=== PATIENT | female | born 1940 | race Caucasian/White ===

== ENCOUNTER 2016-11-01 18:32 | Inpatient (IN) | payer MEDICARE ==
[~2016-11-01] VITALS: Ht 162.5 cm; Wt 58.5 kg
--- NOTE | ~2016-11-01 | PR ---
[place], [place] PROGRESS NOTE NAME: DANSIHA TUTTLE UNIT #: [id number] ROOM: 312 DOCTOR: CHAVA AVITIA MD BIRTHDATE: [birth year] DOS: 11/04/2016 CHIEF COMPLAINT: "I don't want to have to go back to that place, can't you understand that." SUMMARY OF THE VISIT: The patient was interviewed in the quiet room where she was sitting, reading a magazine. She stopped and engaged in conversation. She was somewhat upset that she would have to return to [facility] [address] stating that she was absolutely embarrassed that the police had to be called out there and cannot face her friends. She reports being perplexed that she is getting mixed messages, but her report from her son who is her power of business attorney stating what and what cannot she do. She was hoping to be able to move to [place] either with the daughter or on her own and states that the son has given her conflicting messages. On a more positive note, she does seem to be much more redirectable and is much less pressured and manic. You can actually reasonably rationalize with her and have a conversation that is not pressured. Her only other complaint is that she did not sleep well at all last night. MENTAL STATUS: She is alert and oriented. Mood does still seem to be somewhat hypomanic, but improving. There are no auditory or visual hallucinations. No delusions, no paranoia. Short, intermediate, and long-term memory are relatively intact. PLAN: I will maintain her current psychotropic regimen. I will check a valproic acid level in the a.m. and I will add trazodone 150 mg at bedtime p.r.n. for sleep. Continue to engage her in individual and torres milieu with the plan to discharge when psychiatrically stable. CHAVA AVITIA MD CM:PNTRANS [phone] CHAVA AVITIA MD 11/04/164 interface
--- NOTE | ~2016-11-01 | PR ---
[place], [place] PROGRESS NOTE NAME: DANISHA TUTTLE UNIT #: [id number] ROOM: 312 DOCTOR: ANGELIKA WALTRES BIRTHDATE: [birth year] DOS: 11/03/2016 CHIEF COMPLAINT: Today, "why I'm here." SUMMARY OF THE VISIT: The patient was seen in the dining room. She is alert and oriented x 3. Although short tempered, but cooperative and conversant. She has had a positive urinalysis, she had positive ketones, positive blood, 1+ leukocyte esterase, 4+ bacteria, so she will be treated for a urinary tract infection. She had a C and S done at the shelter, which they called and said it was positive for greater than 100,000 Klebsiella. Her calls have been limited while she is on the unit because she is making multiple calls to the son. So, at his request, she has been limited to [address] Voss came and evaluated her yesterday. Her daughter is her DPOA. She is here on a pink slip and so that now will on Sunday. She has told me that she does not want to return to the [facility] and social worker psychiatric is aware of that. We are going to encourage fluids on her since she does have the positive UTI. We will continue to try to engage her in individual and torres milieu. She will be treated for the urinary tract infection and we will discharge her to the least restrictive environment as soon as she is psychologically and medically stable. Angelika Walters NP CM:PNTRANS [phone] ANGELIKA WALTERS 11/03/162108 interface
--- NOTE | ~2016-11-01 | CON ---
[place], [place] REPORT OF CONSULTATION NAME: DANISHA TUTTLE UNIT #: [id number] ROOM: 312 DOCTOR: KARTHIKEYAN ESPINO ED.D (IVAN) BIRTHDATE: [birth year] DOS: 11/02/2016 HISTORY OF PRESENT ILLNESS: The patient is a 75-year-old female referred by Dr. Avitia for competency evaluation. This patient is presently on [facility] for her bipolar disorder. She states that she is presently residing at the [facility] at [address], in [place], [place]. She was sent to the hospital because she was extremely manic. Her son apparently is her power of ip technology transactions attorney for healthcare and general power of ip technology transactions attorney. There was some concern about this patient needing guardianship but at the present time, she does have a durable power of ip technology transactions attorney for healthcare and all decision should be deferred to that individual. She does have a long history of mental illness along with atrial fibrillation, congestive heart failure, hypothyroidism, hypertension, osteoporosis, pulmonary nodules and vitamin D deficiency. Her psych meds include Depakote and Latuda at this time. She was awake, alert and oriented to person, place and time. She is here under a pink slip and that should remain in effect until Sunday. At that time, hopefully, she will be more stable from a psychiatric point and can return to her facility or find another facility with the help of social media content manager here at the hospital. She states she does have a power of ip technology transactions attorney, again, there is no need for guardianship at this time. Apparently, the daughter is filing for guardianship, but she is contacting ip technology transactions attorney to do so, but the hospital does recognize her power of ip technology transactions attorney. DIAGNOSES: 1. Bipolar 1--mixed. RECOMMENDATIONS: Since this patient does have a durable power of ip technology transactions attorney and a durable power of ip technology transactions attorney for healthcare, those should be consulted with regard to any informed consent issues regarding this patient. Thank you very much for this consult. KARTHIKEYAN ESPINO ED.D CM:CONSTR:REPORT OF CONSULTATION 1212 11/03/16 0059 interface CHAVA AVITIA MD
--- NOTE | ~2016-11-01 | DS ---
[place], [place] DISCHARGE SUMMARY NAME: DANISHA TUTTLE UNIT #: [id number] ROOM: 312 DOCTOR: ANGELIKA WALTERS BIRTHDATE: [birth year] DOS: 11/06/2016 CHIEF COMPLAINT: Today, "Am I going home." HISTORY OF PRESENT ILLNESS: She is a 75-year-old white female who was admitted from the [facility], [facility]. She had been escalating at the assisted [facility] becoming more manic. Dr. Manuel had visited her at the facility and tried to adjust her meds there. She was on Depakote and Seroquel. The Seroquel was discontinued and Latuda was started there at the assisted [facility] facility. That was effective and needed to be adjusted and so she was admitted to the Behavioral Health Unit. PAST MEDICAL HISTORY: Significant for atrial fib, CHF, hyperlipidemia, hypothyroidism, lumbar stenosis, osteoporosis, pulmonary nodules, vitamin D deficiency and she has an overactive bladder. SUMMARY OF HOSPITAL COURSE: We continued to adjust her Latuda while she was here, monitored her Depakote level and adjust that accordingly. She was also started on Desyrel while she was here in order to help her try to sleep because she was complaining of not being able to sleep. That was then subsequently discontinued because she believed that it upset her stomach. MENTAL STATUS ON DISCHARGE: She is alert, oriented to person, place and time. She is in a much more stable mood. She is interactive with other patients here on the unit, interactive with staff. She is not as hyperverbal as she was whenever she was initially admitted. She does remain a little intrusive. When you are talking to someone else, she kind of comes in and tries to put herself in there. She really needs attention, but she is a lot more redirectable than she was. DIAGNOSIS AT DISCHARGE: Bipolar, type 1. She is stable at discharge. DISPOSITION: She will be discharged back to [facility]. Her medications have been electronically transmitted to her pharmacy. She has stable mental status at discharge. [place], [place] DISCHARGE SUMMARY NAME: DANISHA TUTTLE UNIT #: [id number] ROOM: 312 DOCTOR: ANGELIKA WALTERS BIRTHDATE: [birth year] Angelika Walters NP CM:DISCHARG [phone] ANGELIKA WALTERS 11/06/16 1249 interface
--- NOTE | ~2016-11-01 | PR ---
[place], [place] PROGRESS NOTE NAME: DANISHA TUTTLE UNIT #: [id number] ROOM: 312 DOCTOR: ISABEL WILLIAM MD BIRTHDATE: [birth year] DOS: 11/05/2016 CHIEF COMPLAINT: "Oh doctor, I don't know if it was that sleeping pill or what, but it made me dry heave." SUMMARY OF THE VISIT: The patient was interviewed as she was resting quietly in bed. She smiled as I approached and engaged readily in conversation. She was very pleasant other than stating that she felt sick after she took the trazodone and thinks that, that is what made her sick in the stomach, although she also reports that the medical people started her on a medicine for her arthritis and was wondering if that too could be contributing to her upset stomach. From a mood standpoint, she was much more euthymic. There was little to no pressured speech. She was very goal directed in her thoughts and very pleasant. When we discussed possible discharge plan, she nodded in agreement and stated that she was feeling much better. MENTAL STATUS EXAMINATION: She is alert and oriented. Mood does seem to be strongly trending towards euthymia. Affect is much more appropriate. There is no hypomania or walt. There are no overt auditory or visual hallucinations. No delusions, no paranoia. Memory seems fully intact. PLAN: I will go ahead and discontinue the trazodone and monitor her accordingly. Her valproic acid level is therapeutic at 63.7, so I will maintain the Depakote at 500 mg 3 times daily. We will continue to engage in individual and torres milieu activity with the plan to [facility] [address] when psychiatrically stable. ISABEL WILLIAM MD CM:PNTRANS 3 [phone] ISABEL WILLIAM MD 11/05/167 interface
--- NOTE | ~2016-11-01 | WRIGHTHP ---
[place], [place] PATIENT HISTORY AND PHYSICAL EXAM NAME: DANISHA TUTTLE UNIT #: [id number] ROOM: 312 DOCTOR: CHAVA AVITIA MD BIRTHDATE: [birth year] DOS: 11/02/2016 CHIEF COMPLAINT: "I need to talk to you, I do not want to go back to [facility]." HISTORY OF PRESENT ILLNESS: This is a 75-year-old white female who was admitted to the [facility] from [facility] in [place], [place]. The patient apparently has been escalating and been more manic over the last week or 2 prior to this admission. The patient apparently on the day of admission was stating to the staff that she was going to elope the facility. They were fearful that she would hurt herself in some way. Prior to this, she went on a shopping spree and maxed out her credit cards and was doing other very bizarre, manic behaviors. When they attempted to redirect her, she became very angry and barricaded and locked herself in her room, refusing to talk to them. Ultimately, under the threat of police involvement, the patient did comply. The patient apparently has a lengthy history of bipolar disorder and has most recently been on Seroquel and Depakote, but the medications have been ineffective. She is admitted now to rule out organic factors and attempt to stabilize on medication. PAST MEDICAL HISTORY: Significant for atrial fibrillation, CHF, hyperlipidemia, hypothyroidism, lumbar stenosis, osteoporosis, pulmonary nodules, vitamin D deficiency, and overactive bladder. MENTAL STATUS EXAMINATION: This morning, the patient is alert and oriented to person, place and time. Mood does seem to be somewhat expansive. She is very hyperverbal and does tend to be somewhat circumstantial in her thinking, but will eventually get to her point. She is nearly pressured, but she is interruptible. There were no gross psychotic symptoms noted. No overt auditory or visual hallucinations. She does cover her symptoms quite well and is able to deflect questions by answering them partially. Memory seems relatively fully intact. DIAGNOSIS: Bipolar, type 1, manic. PLAN: The patient had been on Depakote 250 mg twice daily. I have already increased this while at the assisted living to 500 mg twice daily and once again upon admission here, increased this further to 500 mg 3 times a day. I will attempt to bring the Depakote level into the range of 60-80. Additionally, while at the assisted living, I discontinued her Seroquel due to ineffectiveness and started her on Latuda 40 mg at bedtime. She has subsequently tolerated the Latuda well, so I will go ahead and increase this further to 80 mg at bedtime. I will have oncology social worker and nursing reach out to family to get a better past medical history to see which psychiatric provider she has worked within the [facility] and to see what other hospitalization she has had. We also discussed with family ultimate placement options for her returning her then to the least restrictive environment when psychiatrically stable. [place], [place] PATIENT HISTORY AND PHYSICAL EXAM NAME: DANISHA TUTTLE UNIT #: [id number] ROOM: [employer] DOCTOR: CHAVA AVITIA MD BIRTHDATE: [birth year] CHAVA AVITAI MD CM:HISPHYS:PATIENT HISTORY AND PHYSICAL EXAMINATION 1 7 CHAVA AVITIA MD 11/02/16826 interface
[2016-11-01] MEDS ORDERED: LATU40TA PO (18:34)
[2016-11-01] MEDS ORDERED: ALENDRONATE SOD70 M1 PO (18:35)
[2016-11-01] MEDS ORDERED: CLARITIN10 MG PO (18:36)
[2016-11-01] MEDS ORDERED: POLYETHYLE17 GM/Dose PO (18:37)
[2016-11-01] MEDS ORDERED: VITAMIN D-32000 UNIT PO (18:37)
[2016-11-01] MEDS ORDERED: Synthroid,Lev100 MCG PO (18:38)
[2016-11-01] MEDS ORDERED: DEPAKOTE500 MG PO (18:39)
[2016-11-01] MEDS ORDERED: OYSTER SHELL C1 EAC4 PO (18:40)
[2016-11-01] MEDS ORDERED: DITROPAN XL5 MG PO (18:41)
[2016-11-01] MEDS ORDERED: SIMVASTATIN5 MG PO (18:42)
[2016-11-01] MEDS ORDERED: DOK COLACE100 MG PO (18:43)
[2016-11-01] MEDS ORDERED: ELIQUIS5 M1 PO (18:43)
[2016-11-01] MEDS ORDERED: ATIVAN0.5 MG PO (18:44)
[2016-11-01] MEDS ORDERED: FLECAINIDE ACET50 M1 PO (18:44)
[2016-11-01] MEDS ORDERED: SENNA LAX8.6 M1 PO (18:45)
[2016-11-01 21:55] VITALS: BP 150/80
[2016-11-02 07:04] LABS: THYROID STIM HORMONE (HS) 1.73 uIU/ml (0.358-4.75)
[2016-11-02 08:28] VITALS: BP 158/72
[2016-11-02 08:49] LABS: FOLIC ACID 13.84 ng/mL (>5.38); VITAMIN D, 25-HYDROXY 31.8 ng/mL (30-100)
[2016-11-02 09:56] LABS: BILIRUBIN NEGATIVE (NEGATIVE); BLOOD 1+ (NEGATIVE); CLARITY CLOUDY (CLEAR); COLOR YELLOW (YELLOW); GLUCOSE NEGATIVE (NEGATIVE); KETONE 1+ (NEGATIVE); LEUKO ESTERASE 1+ (NEGATIVE); NITRITE NEGATIVE (NEGATIVE); PROTEIN TRACE (NEGATIVE)
[2016-11-02 10:05] LABS: BACTERIA 4+; URINE REFLEX COMMENT YES (NO); WBC 21-30 wbc/hpf (0-5)
[2016-11-02 20:08] VITALS: BP 108/50
[2016-11-03 11:46] VITALS: BP 101/64
[2016-11-03 20:00] VITALS: BP 118/67
[2016-11-04 07:46] VITALS: BP 112/55
[2016-11-04 20:20] VITALS: BP 123/60
[2016-11-05 08:26] VITALS: BP 115/58
[2016-11-05 20:00] VITALS: BP 109/53
[2016-11-06 07:56] VITALS: BP 110/52
[2016-11-06] MEDS ORDERED: LATU80TA PO (08:44)
[2016-11-06] MEDS ORDERED: DIVALPROEX SOD500 MG PO (08:44)
[2016-11-06] MEDS ORDERED: D-1000 185 MG-11 TAB PO (08:44)
== END 2016-11-06 12:59 | disposition other institution (70) | DRG 885 ==
LOC: 3N 18:32
PROVIDERS: Psychiatry & Neurology Psychiatry
DX: F31.60 Bipolar disorder, current episode mixed, unspecified (principal); I50.32 Chronic diastolic (congestive) heart failure; N39.0 Urinary tract infection, site not specified; E87.1 Hypo-osmolality and hyponatremia; R73.9 Hyperglycemia, unspecified; M81.0 Age-related osteoporosis without current pathological fracture; E03.9 Hypothyroidism, unspecified; N32.81 Overactive bladder; I48.91 Unspecified atrial fibrillation; R31.9 Hematuria, unspecified; R91.1 Solitary pulmonary nodule; E78.5 Hyperlipidemia, unspecified; M48.06 Spinal stenosis, lumbar region; E55.9 Vitamin D deficiency, unspecified; Z87.891 Personal history of nicotine dependence; Z80.9 Family history of malignant neoplasm, unspecified; Z82.49 Family history of ischemic heart disease and other diseases of the circulatory system; Z79.899 Other long term (current) drug therapy

== ENCOUNTER 2016-11-01 19:14 | Emergency (ER) | payer MEDICARE ==
[~2016-11-01] VITALS: Ht 172.7 cm; Wt 59.0 kg
[~2016-11-01 19:14] MED LIST: ALENDRONATE SOD70 M1 PO; ATIVAN0.5 MG PO; CLARITIN10 MG PO; DEPAKOTE500 MG PO; DITROPAN XL5 MG PO; DOK COLACE100 MG PO; ELIQUIS5 M1 PO; FLECAINIDE ACET50 M1 PO; LATU40TA PO; OYSTER SHELL C1 EAC4 PO; POLYETHYLE17 GM/Dose PO; SENNA LAX8.6 M1 PO; SIMVASTATIN5 MG PO; Synthroid,Lev100 MCG PO; VITAMIN D-32000 UNIT PO
[2016-11-01 20:01] LABS: BASO % 0.2 % (0.0-1.0); HEMATOCRIT 39.5 % (37.0-47.0); LYMPH # 0.6 10*3/uL (1.3-4.4); LYMPH % 11.3 % (27.0-41.0); MEAN CORPUSCULAR HGB CONC 32.9 g/dl (33.0-37.0); MEAN PLATELET VOLUME 9.5 fl (9.6-12.3); MONO # 0.5 10*3/uL (0.1-1.0); MONO % 8.6 % (3.0-9.0); NEUT # 4.2 10*3/uL (2.3-7.9); NEUT % 79.7 % (47.0-73.0); PLATELET COUNT AUTOMATED 235 10*3/uL (130-400); RED CELL DISTRI WIDTH 14.9 % (0-14.5); WHITE BLOOD COUNT 5.2 10*3/uL (4.8-10.8)
[2016-11-01 20:10] LABS: BILIRUBIN NEGATIVE (NEGATIVE); BLOOD TRACE-LYSED (NEGATIVE); CLARITY SL CLOUDY (CLEAR); COLOR YELLOW (YELLOW); GLUCOSE NEGATIVE (NEGATIVE); KETONE TRACE (NEGATIVE); LEUKO ESTERASE NEGATIVE (NEGATIVE); NITRITE NEGATIVE (NEGATIVE); PH 7.5 (5.0-9.0); PROTEIN NEGATIVE (NEGATIVE); UROBILINOGEN 0.2 E.U./dl (0.2-1.0)
[2016-11-01 20:17] LABS: BACTERIA 2+; URINE REFLEX COMMENT YES (NO)
[2016-11-01 20:17] LABS: ALBUMIN 3.6 gm/dl (3.1-4.5); ALKALINE PHOSPHATASE 87 U/L (45-117); BILIRUBIN, TOTAL 0.5 mg/dl (0.2-1.0); BUN 14 mg/dl (7-24); CARBON DIOXIDE 29 mmol/L (21-32); CHLORIDE 95 mmol/L (98-107); EST GLOM FILT AFRICAN AMERICAN > 60 ml/min; GLUCOSE 108 mg/dL (65-99); POTASSIUM 4.2 mmol/L (3.5-5.1); SGOT/AST 20 IU/L (3-35); SGPT/ALT 14 U/L (12-78); SODIUM 131 mmol/L (136-145); TOTAL PROTEIN 7.8 gm/dL (6.4-8.2)
[2016-11-01 20:18] LABS: EPITHELIAL CELLS 0-2
[2016-11-01 21:04] LABS: URINE AMPHETAMINES < 1000 (1000ng/ml); URINE BARBITURATES < 200 (200ng/ml); URINE COCAINE < 300 (300ng/ml)
== END 2016-11-01 21:25 | disposition home or self-care (01) ==
LOC: ED 19:14
PROVIDERS: Emergency Medicine
DX: F31.9 Bipolar disorder, unspecified (principal); F30.9 Manic episode, unspecified; Z79.899 Other long term (current) drug therapy